=== PATIENT | male | born 1960 | race Two or more races ===

== ENCOUNTER 2017-02-12 12:37 | Emergency (ER) | payer BC, OTHER ==
[~2017-02-12] VITALS: Ht 172.7 cm; Wt 86.2 kg
[2017-02-12 13:00] VITALS: BP 149/125
[2017-02-12] MEDS ORDERED: KETOROLAC TROMETH 60MG/2ML VIAL IM ONE (14:15)
== END 2017-02-12 15:09 | disposition home or self-care (01) ==
LOC: ER 12:37
DX: M47.816 Spondylosis without myelopathy or radiculopathy, lumbar region (principal); M25.512 Pain in left shoulder; M25.511 Pain in right shoulder; W11.XXXA Fall on and from ladder, initial encounter; Y93.89 Activity, other specified; Y92.89 Other specified places as the place of occurrence of the external cause; Y99.8 Other external cause status
CPT/HCPCS: 72110; 73030; 73130; 96372; 99284; J1885

== ENCOUNTER 2017-04-03 17:42 | Emergency (ER) | payer OTHER ==
[~2017-04-03] VITALS: Ht 172.7 cm; Wt 88.5 kg
[2017-04-03 18:37] VITALS: BP 137/92
== END 2017-04-03 19:40 | disposition home or self-care (01) ==
LOC: ER 17:45
DX: S40.861A Insect bite (nonvenomous) of right upper arm, initial encounter (principal); T78.40XA Allergy, unspecified, initial encounter; W57.XXXA Bitten or stung by nonvenomous insect and other nonvenomous arthropods, initial encounter; Y93.89 Activity, other specified; Y92.89 Other specified places as the place of occurrence of the external cause; Y99.8 Other external cause status